=== PATIENT | female | born 1950 ===

== ENCOUNTER 2020-10-29 17:30 | Inpatient (IN) | payer MEDICARE, OTHER ==
[~2020-10-29] VITALS: Ht 172.7 cm; Wt 69.0 kg
[2020-10-29 17:59] VITALS: BP 125/99; PULSE 90; TEMP 98.5
[2020-10-29 18:19] LABS: BASO # 0.1 (0.0-0.2); BASO % 0.5 % (0.0-2.0); EOS # 0.1 (0.0-0.7); EOS % 0.8 % (0-4.0); GRAN # 11.8 (1.4-6.5); GRAN % 75.8 % (42.2-75.2); HEMATOCRIT 39.8 % (37.0-47.0); HEMOGLOBIN 13.3 g/dl (12.5-16.0); LYMPH % 19.2 % (20.0-51.0); MEAN CELL VOLUME 99 fl (80.0-100.0); MEAN CORPUSCULAR HEMOGLOBIN 33 pg (27.0-31.0); MEAN CORPUSCULAR HGB CONC 33 g/dl (33.0-37.0); MEAN PLATELET VOLUME 9.3 fl (7.4-10.4); MONO # 0.5 (0.1-0.6); MONO % 3.2 % (1.7-9.3); PLATELET COUNT 211 K/mm3 (130-400); RED BLOOD COUNT 4.03 M/mm3 (4.10-5.30); REDCELL DISTRIBUTION WIDTH-CV 13.3 % (11.5-14.5)
[2020-10-29] MEDS ORDERED: NORCO 325 MG-51 TAB PO (18:19)
[2020-10-29] MEDS ORDERED: BUSPAR5 MG PO (18:20)
[2020-10-29] MEDS ORDERED: SYNTHROID0.088 MG/T PO (18:20)
[2020-10-29] MEDS ORDERED: 00186-0370-20 IH (18:20)
[2020-10-29] MEDS ORDERED: PROVENTIL0.09 MG/A1 IH (18:21)
[2020-10-29] MEDS ORDERED: PRILOSEC 20MG20 MG PO (18:22)
[2020-10-29] MEDS ORDERED: ASPIRIN 81M81 MG/TA2 PO (18:25)
[2020-10-29 18:29] LABS: PROTHROMBIN TIME 11.1 SECONDS (9.7-12.8)
[2020-10-29 18:33] LABS: ALBUMIN 3.9 gm/dL (3.5-5.0); BILIRUBIN,TOTAL 0.6 mg/dL (0.0-1.0); CALCIUM 9.2 mg/dL (8.4-10.2); CREATININE, serum 0.63 (0.52-1.25); TOTAL PROTEIN 6.8 gm/dL (6.4-8.2)
[2020-10-29 18:40] LABS: PRE ALBUMIN 19.8 mg/dL (17.6-36.0)
--- NOTE | 2020-10-29 19:30 | NUR ---
Patient has been in a lot of pain. She continues to rate her pain at 10 on a 0-10 scale. She stated none of the pain medicaitons are working. Dilauded given. She stated that the fentanyl she was given my EMS did nothing. Discussed what works for her, she stated muscle relaxers and norco. She had those before leaving [facility]. It took 3 staff members to get her clothes off and place her left leg in traction. It took about 2 hours to get her settled. 1mg of dilauded and 10mg of norco given for pain. Medications in the computer updated. Did not get to place her celeste catheter due to several tests being completed at this time. Karon HOPKINS will be resuming care for patient and will be placing celeste catheter. Norflex ordered but not given yet. Called Assembly Cleaner as medication is not available on the floor. No other changes at this time. Call jess weston.
[2020-10-29 19:33] VITALS: BP 136/70; PULSE 83; TEMP 99
--- NOTE | 2020-10-29 20:20 | NUR ---
Patient down to CT by bed.
--- NOTE | 2020-10-29 21:50 | NUR ---
Sheridan catheter placed per orders. Pericare provided, patient having clear yellow urine.
--- NOTE | 2020-10-29 22:17 | NUR ---
Contacted Vicky Angelo, patient continues to complain of cramping pain 9/10 to left hip, stated dilaudid is not really helping with pain. New order for speedy.
[2020-10-29 22:48] LABS: MUCOUS Present /lpf; PH 5 (5-8); SQUAMOUS EPITHELIAL None Seen /hpf; URINE APPEARANCE Clear; URINE BACTERIA None Seen /hpf; URINE BILIRUBIN Negative (NEGATIVE); URINE BLOOD 1+ (NEGATIVE); URINE COLOR Yellow; URINE GLUCOSE Negative (NEGATIVE); URINE KETONE Trace (NEGATIVE); URINE LEUKOCYTE ESTERASE Negative (NEGATIVE); URINE NITRATE Negative (NEGATIVE); URINE PROTEIN(semi-quant) Negative (NEGATIVE); URINE UROBILINOGEN Negative (NEGATIVE)
[2020-10-29 23:09] LABS: COLLECTION METHOD CLEAN CATCH
[2020-10-29 23:13] VITALS: BP 142/68; PULSE 81; TEMP 98.8
[2020-10-30] VITALS (12 sets, daily range): BP systolic 112–143; BP diastolic 44–62; PULSE 62–95; TEMP 98.1–99.1
--- NOTE | 2020-10-30 00:01 | NUR ---
Patient continues complaning of pain 8/10 to left hip, states cramping is better now. Medications given per orders.
--- NOTE | 2020-10-30 02:02 | NUR ---
Patient called out to nurses station, states she is having pain and cramping to LLE 8/10, medications given at this time. Reported off to Vidya HOPKINS.
--- NOTE | 2020-10-30 02:02 | NUR ---
RECEIVED REPORT FROM HARJINDER HOPKINS.
--- NOTE | 2020-10-30 02:55 | NUR ---
DECREASED ROM/STRENGTH TO LLE D/T LEFT HIP FX, TRACTION TO LLE IN PLACE. EMMANUEL TO DD IN PLACE AND DRAINING WITH NO PROBLEMS. INT TO RFA IN PLACE AND FLUSHES WITH NO PROBLEMS.
--- NOTE | 2020-10-30 03:03 | NUR ---
PATIENT VERBALIZING UNRELENTING PAIN TO LEFT LEG DESPITE NARCOTICS GIVEN. WEIGHT REMOVED FROM TRACTION, ELEVATED LLE ON X2 PILLOWS THAT PATIENT. OBSERVED PATIENT'S FACIAL GRIMACING DECREASED SLIGHTLY AND LESS VERBALIZING OF PAIN WITH EVEN RESPIRATIONS.
[2020-10-30 06:09] LABS: BASO # 0.1 (0.0-0.2); BASO % 0.6 % (0.0-2.0); EOS # 0.1 (0.0-0.7); EOS % 1.2 % (0-4.0); GRAN # 6.6 (1.4-6.5); GRAN % 62.9 % (42.2-75.2); HEMATOCRIT 39.8 % (37.0-47.0); LYMPH # 3.2 (1.2-3.4); MEAN CELL VOLUME 102 fl (80.0-100.0); MEAN CORPUSCULAR HEMOGLOBIN 33 pg (27.0-31.0); MEAN CORPUSCULAR HGB CONC 33 g/dl (33.0-37.0); MEAN PLATELET VOLUME 9.6 fl (7.4-10.4); MONO # 0.5 (0.1-0.6); MONO % 4.8 % (1.7-9.3); PLATELET COUNT 188 K/mm3 (130-400); RED BLOOD COUNT 3.92 M/mm3 (4.10-5.30); REDCELL DISTRIBUTION WIDTH-CV 13.5 % (11.5-14.5)
[2020-10-30 06:12] LABS: CALCIUM 9.1 mg/dL (8.4-10.2); CREATININE, serum 0.65 (0.52-1.25); POTASSIUM 4.4 mmol/L (3.4-5.0)
--- NOTE | 2020-10-30 07:25 | NUR ---
CHANGE OF SHIFT REPORT GIVEN TO DAY SHIFT NURSECAIN.
--- NOTE | 2020-10-30 08:21 | NUR ---
PATIENT SHIFT ASSESSMENT COMPLETE AT THIS TIME. EMMANUEL CATHETER TO DEPENDENT DRAINAGE. CALL LIGHT WITHIN REACH. PRN IV PAIN MEDICATION GIVEN AT THIS TIME. PATIENT NPO FOR SURGERY. NO OTHER NEEDS AT THIS TIME.
--- NOTE | 2020-10-30 08:36 | NUR ---
PATIENT TAKEN TO [facility]-OP VIA BED BY MEE. WILL WAIT FOR PATIENT ARRIVAL BACK TO ROOM 345.
--- NOTE | 2020-10-30 09:30 | NUR ---
LR TO GRAVITY FLOW TUBING AND INFUSING TO RIGHT FOREARM IV. CONSENT FORMS ON PATIENTS CHART.
--- NOTE | 2020-10-30 14:10 | NUR ---
PATIENT ARRIVED BACK TO ROOM 345 VIA BED FROM PACU. PATIENT IS SEDATED FROM SURGERY BUT AROUSES EASILY. POST-OP VSS. LEFT HIP INCISION SITES X3 DRESSED WITH GAUZE & TEGADERM AND ARE CD&I. ELIANE HOSE AND SCD'S TO BLE. SPLINT,EMILIA DRESSING AND SLING TO LUE INTACT. PATIENT DENIES BEING ABLE TO FEEL HER FINGERS OR MOVE THEM AT THIS TIME. CAP REFILL TO BUE & BLE <3 SECONDS. PATIENT DENIES COMPLAINTS OF PAIN AT THIS TIME. CALL LIGHT WITHIN REACH. WILL CONTINUE TO MONITOR.
--- NOTE | 2020-10-30 16:08 | NUR ---
The patient was hard to rouse due to medication after surgery. Science Center Display Builder met with the patient's , Declan. He came to the hosptial to drop off something for the patient. The patient and Declan live in [place]. The patient has a walking stick, wheelchair, and walker if needed. The patient is independent. The patient's PCP is Dr. Kristopher Salazar and patient receives medications from [facility] in [place]. The patient does not have advanced directives in the EMR. Declan does not think they have any completed. The patient will likely be needing post acute rehab. Declan states the patient has been to [place] [facility] and would like that to be the first choice. The second choice is [facility] [place]. Referrals faxed. SW collaborated the above information with the patient's nurse.
--- NOTE | 2020-10-30 17:55 | NUR ---
PATIENT POST-OP VSS AND COMPLETE. PATIENT REPORTS THAT SHE STILL CANNOT MOVE HER FINGERS BUT THAT THEY FEEL NUMB WHEN TOUCHED. CAP REFILL <3 SECONDS. PATIENT TOLERATING CLEAR LIQUIDS, DIET ADVANCE PER ORDERS. PAIN MEDICATION ADMINISTERED NEEDED. WILL REPORT OFF TO ONCOMING NURSE.
--- NOTE | 2020-10-30 23:37 | NUR ---
PATIENT RESTING IN BED. SOME COMPLAINTS OF PAIN TO HER WRIST AND LEFT HIP. DRESSINGS ARE CLEAN, DRY, AND INTACT. PATIENT ONLY ATE A SMALL AMOUNT OF HER DINNER. NORCO GIVEN FOR PAIN. CALL LIGHT IN REACH.
[2020-10-31 04:44] VITALS: BP 104/51; PULSE 116; TEMP 98.4
--- NOTE | 2020-10-31 06:40 | NUR ---
awake resting in bed, bedside shift report received from SANDEEP Perry
[2020-10-31 06:41] LABS: BASO % 0.2 % (0.0-2.0); EOS % 0.1 % (0-4.0); GRAN # 7.1 (1.4-6.5); GRAN % 72.7 % (42.2-75.2); HEMATOCRIT 29.5 % (37.0-47.0); LYMPH # 1.9 (1.2-3.4); LYMPH % 19.5 % (20.0-51.0); MEAN CELL VOLUME 101 fl (80.0-100.0); MEAN CORPUSCULAR HEMOGLOBIN 33 pg (27.0-31.0); MEAN CORPUSCULAR HGB CONC 33 g/dl (33.0-37.0); MEAN PLATELET VOLUME 9.9 fl (7.4-10.4); MONO # 0.7 (0.1-0.6); MONO % 7.1 % (1.7-9.3); PLATELET COUNT 142 K/mm3 (130-400); RED BLOOD COUNT 2.92 M/mm3 (4.10-5.30); REDCELL DISTRIBUTION WIDTH-CV 13.1 % (11.5-14.5)
[2020-10-31 06:43] LABS: HEMOGLOBIN 9.7 g/dl (12.5-16.0)
[2020-10-31 07:22] LABS: CALCIUM 8.7 mg/dL (8.4-10.2); CREATININE, serum 0.68 (0.52-1.25); POTASSIUM 4.6 mmol/L (3.4-5.0)
[2020-10-31 07:23] VITALS: BP 104/46; PULSE 64; TEMP 99.1
--- NOTE | 2020-10-31 08:30 | NUR ---
sitting up in bed having breakfast
--- NOTE | 2020-10-31 09:00 | NUR ---
had breakfast and tolerated well, resting in bed, physical therapy now in to work with patient
--- NOTE | 2020-10-31 09:45 | NUR ---
occupational therapy now in working with patient
--- NOTE | 2020-10-31 10:40 | NUR ---
up in chair watching TV, c/o pain to left hip and wrist, medicated with hydrocodone 10mg 1 tab, full assessment comopleted, see interventions for further info
--- NOTE | 2020-10-31 11:16 | NUR ---
First visit from the meter and service line inspector. No needs right now.
[2020-10-31 11:50] VITALS: BP 94/41; PULSE 71; TEMP 99
--- NOTE | 2020-10-31 14:00 | NUR ---
c/o pain to left hip and wrist, medicated with roxicodone 5mg
[2020-10-31 14:23] LABS: HEMOGLOBIN 10.1 g/dl (12.5-16.0)
--- NOTE | 2020-10-31 15:15 | NUR ---
in bed and appears to be sleeping, eyes closed, resp quiet and easy
[2020-10-31 15:44] VITALS: BP 114/48; PULSE 72; TEMP 98.8
--- NOTE | 2020-10-31 16:37 | NUR ---
celeste catheter discontinued by DIRECTOR OF STUDENT LIFE
--- NOTE | 2020-10-31 17:51 | NUR ---
resting in bed, has ordered supper, denies urge to void
--- NOTE | 2020-10-31 18:45 | NUR ---
up to bathroom with assistance and was able to void qs, then assisted back to bed, bedside shift report given to SANDEEP Sherman
[2020-10-31 19:48] VITALS: BP 125/54; PULSE 71; TEMP 98.2
--- NOTE | 2020-10-31 22:24 | NUR ---
PATIENT RESTING IN BED. SHE HAS BEEN AMBULATING TO THE BATHROOM TO VOID WITH WALKER AND A GAIT BELT. PATIENT AMBULATED WELL, BUT HAD LOTS OF PAIN. ALTERNATING NORCO AND OXYCODONE FOR PAIN. SCDS AND ELIANE HOSE ON. DRESSINGS ON HIP AND WRIST CLEAN, DRY, AND INTACT. PATIENT HAS NO OTHER NEEDS AT THIS TIME.
[2020-11-01] VITALS (7 sets, daily range): BP systolic 103–137; BP diastolic 41–60; PULSE 64–82; TEMP 97.7–99
--- NOTE | 2020-11-01 00:18 | NUR ---
PATIENT UP TO USE BATHROOM WITH WALKER AND GAIT BELT. REQUESTED PAIN PILL. NORCO GIVEN.
--- NOTE | 2020-11-01 03:12 | NUR ---
PATIENT'S DRESSING TO HER LEFT HIP STARTING TO COME OFF. REINFORCED DRESSING WITH TEGADERM.
[2020-11-01 06:35] LABS: BASO % 0.5 % (0.0-2.0); EOS # 0.2 (0.0-0.7); EOS % 2.4 % (0-4.0); GRAN # 4.8 (1.4-6.5); GRAN % 57.2 % (42.2-75.2); LYMPH # 2.7 (1.2-3.4); LYMPH % 32.9 % (20.0-51.0); MEAN CELL VOLUME 100 fl (80.0-100.0); MEAN CORPUSCULAR HGB CONC 34 g/dl (33.0-37.0); MEAN PLATELET VOLUME 9.7 fl (7.4-10.4); MONO # 0.5 (0.1-0.6); MONO % 6.5 % (1.7-9.3); PLATELET COUNT 140 K/mm3 (130-400); RED BLOOD COUNT 2.74 M/mm3 (4.10-5.30); REDCELL DISTRIBUTION WIDTH-CV 13.3 % (11.5-14.5)
[2020-11-01 06:37] LABS: HEMATOCRIT 27.4 % (37.0-47.0); HEMOGLOBIN 9.3 g/dl (12.5-16.0); MEAN CORPUSCULAR HEMOGLOBIN 34 pg (27.0-31.0)
[2020-11-01 06:45] LABS: CALCIUM 8.6 mg/dL (8.4-10.2); CREATININE, serum 0.67 (0.52-1.25); POTASSIUM 3.9 mmol/L (3.4-5.0)
--- NOTE | 2020-11-01 09:16 | NUR ---
Patient resting in bed. Pain rating 7/10. She requested roxicodone for pain. She has been up and around with therapy this am & done well. Hopeful for discharge will monitor.
--- NOTE | 2020-11-01 09:51 | NUR ---
Rafaela from [facility] reports they can accept the patient for post acute rehab. Special Assemblies Supervisor met with the patient to discuss the discharge plan. The patient is hesitant to go to post acute rehab because she does not want her driving alone. The first choice is [facility] and second choice is [facility]. CORNELIUS informed the patient that if [facility] cannot accept when she is medically cleared for discharge that she would have to go to [facility]. CORNELIUS contacted [facility] and left message Danita, she was in a meeting. CORNELIUS collaborated the above information with the patient's nurse.
--- NOTE | 2020-11-01 14:44 | NUR ---
Patient resting in bed, pain medications per orders. pain being manged. SHe denies needs at this time. Will monitor.
--- NOTE | 2020-11-01 16:01 | NUR ---
Sales Operations Consultant contacted Danita at [facility]. She has sent information to the physician that will be pediatric nurse practitioner on 11/02. He has not responded. They have a meeting at 0900 on 11/02. Danita will call this SW with a decision at 0930 on 11/02. CORNELIUS met with the patient to provide an updates. She realizes she does need post acute rehab but states she may decide to go home with home health services. CORNELIUS discussed the importance of post acute rehab. She was open to sending another referral to [facility]. The patient is concerned about her being alone. He is independent and drives. But sometimes gets anxious and a bit forgetful. CORNELIUS contacted Meaghan, [facility] Director regarding referral. CORNELIUS collaborated the above information to the patient's nurse.
--- NOTE | 2020-11-01 17:56 | NUR ---
Patient resting in bed. Assisted with Hygeine, She brushed her teeth. Teds off and bed bath wipes used and lotion applied to skin. Medication continues to manage pain.
--- NOTE | 2020-11-01 21:17 | NUR ---
PT IN BED WITH HOB AT 60 DEGREE ANGLE, A/O X4, WITH C/O PAIN IN LEFT ARM AND LEFT THIGH, RATED AT 9/10 THAT IS SHARP. NORCO GIVEN FOR PAIN. PT HAS PERSONAL BELONGINGS AND CALL LIGHT WITHIN REACH. NO OTHER NEEDS AT THIS TIME.
[2020-11-02 03:31] VITALS: BP 117/46; PULSE 70; TEMP 98.6
--- NOTE | 2020-11-02 05:18 | NUR ---
PT HAD PAIN ON LEFT WRIST AND HIP, GAVE PAIN MEDICATION. PT SEEMS TO CONTROL PAIN BEST BY GIVING NORCO. PT RESTING/SLEEPING AT THIS TIME, CALL LIGHT WITHIN REACH.
--- NOTE | 2020-11-02 06:45 | NUR ---
awake resting in bed, bedside shift report received from SANDEEP Peng, student nurse Deborah will be assisitng with care
[2020-11-02 07:57] LABS: BASO # 0.1 (0.0-0.2); BASO % 0.7 % (0.0-2.0); EOS # 0.4 (0.0-0.7); EOS % 4.3 % (0-4.0); GRAN # 4.1 (1.4-6.5); GRAN % 49.7 % (42.2-75.2); LYMPH # 3.2 (1.2-3.4); LYMPH % 38.6 % (20.0-51.0); MEAN CELL VOLUME 102 fl (80.0-100.0); MEAN CORPUSCULAR HGB CONC 32 g/dl (33.0-37.0); MEAN PLATELET VOLUME 9.9 fl (7.4-10.4); MONO # 0.5 (0.1-0.6); MONO % 6.5 % (1.7-9.3); PLATELET COUNT 166 K/mm3 (130-400); RED BLOOD COUNT 2.76 M/mm3 (4.10-5.30); REDCELL DISTRIBUTION WIDTH-CV 13.4 % (11.5-14.5)
[2020-11-02 08:00] VITALS: BP 112/51; PULSE 68; TEMP 98.4
[2020-11-02 08:01] LABS: CALCIUM 8.7 mg/dL (8.4-10.2); CREATININE, serum 0.67 (0.52-1.25)
[2020-11-02 08:09] LABS: HEMATOCRIT 28.1 % (37.0-47.0); HEMOGLOBIN 9.1 g/dl (12.5-16.0); MEAN CORPUSCULAR HEMOGLOBIN 33 pg (27.0-31.0)
--- NOTE | 2020-11-02 08:30 | NUR ---
sitting up in bed ewating breakfast
--- NOTE | 2020-11-02 10:00 | NUR ---
up in chair, full assessment completed
[2020-11-02] MEDS ORDERED: ASPI325T6 PO (11:18)
[2020-11-02] MEDS ORDERED: SENOKOT S 50 MG1 TAB PO (11:18)
[2020-11-02] MEDS ORDERED: TYLENOL 325MG325 MG PO (11:18)
[2020-11-02] MEDS ORDERED: VITAMIN C500 MG PO (11:19)
--- NOTE | 2020-11-02 11:20 | NUR ---
up in chair, medicated with hydrocodone 10mg 1 tab in anticipation of ambulating and for c/os pain
[2020-11-02 12:10] VITALS: BP 111/55; PULSE 73; TEMP 97.6
--- NOTE | 2020-11-02 12:50 | NUR ---
bedside shift report given to SANDEEP Casey
[2020-11-02] MEDS ORDERED: DAZIDOX10 MG PO (13:12)
--- NOTE | 2020-11-02 14:04 | NUR ---
Danita with [facility] reports that Dr. Morales can accept the patient for post acute rehab. The patient will discharge today, 11/02. The patient's will provide transportation. CORNELIUS faxed discharge orders. CORNELIUS provided Doc to Doc and Nurse to Nurse numbers to the team. CORNELIUS presented the IM form to the patient. The patient understood and signed the form. A copy was provided to patient and original placed in chart. There are no additional needs.
--- NOTE | 2020-11-02 15:02 | NUR ---
Discharge information given to patient. INT removed from left wrist and covered with band-aid. Discharge report given to SANDEEP Russ at [facility] at 1500. Assisted patient in the wheelchair and escorted to ER parking lot Patient's private car. Care transferred to patient's at 14:50 pm. Patient expressed appreciation of care provided.
== END 2020-11-02 14:50 | DRG 480 ==
LOC: SURG 17:30
PROVIDERS: Orthopaedic Surgery; Physician Assistant; Student in an Organized Health Care Education/Training Program; ADMIT Family Medicine
PROC: 0QS706Z Reposition Left Upper Femur with Intramedullary Internal Fixation Device, Open Approach (ICD-10-PCS; principal; 2020-10-30 10:00)
PROC: 0PSJ04Z Reposition Left Radius with Internal Fixation Device, Open Approach (ICD-10-PCS; 2020-10-30 10:00)
DX: S52.502A Unspecified fracture of the lower end of left radius, initial encounter for closed fracture (principal); S72.142A Displaced intertrochanteric fracture of left femur, initial encounter for closed fracture; W01.0XXA Fall on same level from slipping, tripping and stumbling without subsequent striking against object, initial encounter; Y93.9 Activity, unspecified; D64.9 Anemia, unspecified; I95.9 Hypotension, unspecified; G89.29 Other chronic pain; M54.9 Dorsalgia, unspecified; F41.9 Anxiety disorder, unspecified; J45.909 Unspecified asthma, uncomplicated; K58.9 Irritable bowel syndrome, unspecified; G43.909 Migraine, unspecified, not intractable, without status migrainosus; K21.9 Gastro-esophageal reflux disease without esophagitis; M79.7 Fibromyalgia
CPT/HCPCS: 99222-AI; 99232-AI; 99239; A4314; A9284; C1713; C1769; J0690; J1100; J1170; J2250; J2360; J2405; J2704; J2795; J7030